=== PATIENT | male | born 1995 | race Two or more races ===

== ENCOUNTER 2022-06-30 10:15 | Emergency (ER) | payer OTHER ==
[~2022-06-30] VITALS: Ht 167.6 cm; Wt 86.6 kg
== END 2022-06-30 12:55 | disposition home or self-care (01) ==
LOC: ER 10:15
DX: H66.92 Otitis media, unspecified, left ear (principal)

== ENCOUNTER 2024-11-12 12:04 | Emergency (ER) | payer OTHER ==
[~2024-11-12] VITALS: Ht 167.6 cm; Wt 88.9 kg
[2024-11-12] MEDS ORDERED: TETANUS & DIPHTHERIA TOX,ADULT 0.5 ML VIAL IM ONE (15:45)
[2024-11-12] MEDS ORDERED: LIDOCAINE HCL 1% 10ML VIAL PERCUT ONE (15:45)
[2024-11-12] MEDS ORDERED: TETANUS DIPHTHERIA TOX. ADSOR 5 ML VIAL IM ONE (15:56)
[2024-11-12] MEDS ORDERED: LIDOCAINE HCL 1% 10ML VIAL ONE (15:56)
[2024-11-12] MEDS ORDERED: CEPHALEXIN750 MG PO (18:41)
[2024-11-12] MEDS ORDERED: PEPCID AC20 MG PO (18:41)
== END 2024-11-12 18:44 | disposition home or self-care (01) ==
LOC: ER 12:07
DX: S81.821A Laceration with foreign body, right lower leg, initial encounter (principal); W27.0XXA Contact with workbench tool, initial encounter; Y93.89 Activity, other specified; Y92.9 Unspecified place or not applicable
CPT/HCPCS: 12002; 73590; 90471; 90714; 99283; J1670